=== PATIENT | male | born 2000 | race Hispanic/Latino ===

== ENCOUNTER → 2023-11-10 15:09 | Outpatient (CLI) | payer MEDICARE, MEDICAID, SELFPAY ==
--- NOTE | 2023-11-10 15:12 | DI.RAD.S_ITS ---
PROCEDURE: XR T AND L SPINE 4 TO 5 VIEWS INDICATIONS: concern for scoliosis TECHNIQUE: 2 views acquired of the thoracolumbar spine. COMPARISON: None. FINDINGS: Bones: No acute fractures or dislocations. Very mild rightward curvature of thoracic spine with apex at T7 level and [place] angle measures 5.5 degrees. Moderate kyphosis with apex at T12-L1 level is also seen. Visualized inferior ribs appear intact. No suspicious bony lesions. Soft tissues: No suspicious soft tissue calcifications. IMPRESSION: Mild rightward curvature of thoracic spine with apex at T7 level likely physiologic in nature. Moderate kyphosis with apex at T12-L1 level. No acute vertebral body deformity or compression fracture. Dictated by: Dank Doe M.D. on 11/11/2023 at 13:46 Approved by: Dank Doe M.D. on 11/11/2023 at 13:50
== END ==
LOC: RAD 15:11
PROVIDERS: PCP Family Medicine; Referring Provider Family Medicine; Visit Provider Family Medicine
DX: M41.9 Scoliosis, unspecified (principal); M40.205 Unspecified kyphosis, thoracolumbar region
CPT/HCPCS: 72083

== ENCOUNTER → 2024-10-25 16:47 | Outpatient (CLI) | payer MEDICARE, MEDICAID, SELFPAY ==
[2024-10-25 17:01] LABS: Add Manual Diff / Slide Review NO; Hematocrit 46.6 % (41-53); Hemoglobin 16.2 g/dL (13.5-17.5); Lymphocytes Absolute Auto 2000 /uL (1100-4500); Mean Corpuscular HGB Conc 34.8 % (30-36); Mean Corpuscular Hemoglobin 32.0 PG (26-34); Mean Corpuscular Volume 92.0 fL (80-100); Platelet Count 137 X10^3/uL (150-400)
[2024-10-25 18:13] LABS: HEMOLYSIS < 15 (0-50)
[2024-10-25 18:14] LABS: Iron 85 ug/dL (49-181)
[2024-10-25 18:16] LABS: Alanine Aminotransferase 19 IU/L (<50); Albumin 5.1 g/dL (3.5-5.0); Albumin Globulin Ratio 1.7 (1.0-2.8); Alkaline Phosphatase 51 U/L (38-126); Blood Urea Nitrogen 19 mg/dL (9-20); Calcium 9.9 mg/dL (8.4-10.2); Carbon Dioxide 27 mmol/L (22-32); Chloride 97 mmol/L (98-107); Estimated Glomerular Filt Rate > 60 mL/min (>60); Globulin 3.0 g/dL (1.7-4.1); Glucose 90 mg/dL (70-99); HEMOLYSIS < 15 (0-50); Potassium 3.7 mmol/L (3.4-5.1); Sodium 138 mmol/L (137-145); Total Protein 8.1 g/dL (6.3-8.2)
[2024-10-25 18:26] LABS: Percent Iron Saturation 25 % (20-50); Total Iron Binding Capacity 334 ug/dL (261-462)
[2024-10-25 18:47] LABS: TSH w/ Reflex to FT4 2.02 uIU/mL (0.47-4.68)
[2024-10-25 22:02] LABS: Transferrin 267 mg/dL (206-381)
[2024-10-25 22:28] LABS: Ferritin 42 ng/mL (18-464)
== END ==
PROVIDERS: PCP Family Medicine; Referring Provider Family Medicine; Visit Provider Family Medicine
DX: H54.3 Unqualified visual loss, both eyes (principal); L65.9 Nonscarring hair loss, unspecified; L30.9 Dermatitis, unspecified; F84.0 Autistic disorder
CPT/HCPCS: 36415; 80053; 82728; 83540; 83550; 84443; 85025